=== PATIENT | male | born 1965 | race Caucasian/White ===

== ENCOUNTER 2016-07-21 19:14 | Emergency (ER) | payer OTHER ==
[2016-07-21] MEDS ORDERED: LORazepam TAB(*) 1 MG PO ONE (20:00)
[2016-07-21 21:31] VITALS: BP 144/104
--- NOTE | 2016-07-22 12:07 | ED ---
Ian Vidal Billy, scribed for Christian Pacheco MD on 07/21/16 at 1953 . Psychiatric Complaint - HPI Summary HPI Summary: Patient is a 51 year-old male coming to [facility] presenting with intermittent "panic attacks" in the last few days. He has been taking Benadryl and Xanax for his symptoms with no improvement. He took 2x Xanax today at 1400. He reports increased stress from work and from building a house. He also reports sleep disturbance in the last 24 hours. He has been seen in [facility] for panic attacks in the past. - History Of Current Complaint Chief Complaint: EDGeneral Time Seen by Provider: 07/21/16 19:47 Hx Obtained From: Patient Onset/Duration: Gradual Onset, Lasting Days, Still Present Timing: Intermittent Episode Lasting Severity Initially: Moderate Severity Currently: Moderate Character: Anxious Aggravating Factor(s): Recent Stress Alleviating Factor(s): Nothing Associated Signs And Symptoms: Positive: Sleep Disturbance Related History: Positive For: Prior Psychiatric Issues Has Suicidal: Denies: Thoughts, With A Plan, Demonstrates Gesture, Has Prior Attempt(s) Has Homicidal: Denies: Thoughts, With A Plan, Demonstrates Gesture, Has Prior Attempt(s) - Allergies/Home Medications Allergies/Adverse Reactions: Allergies Allergy/AdvReac Type Severity Reaction Status Date / Time Shrimp Flavor Allergy Difficulty Verified 07/12/15 17:56 Breathing/Wheezing pine nuts Allergy Difficulty Uncoded 07/12/15 17:56 Breathing/Wheezing PMH/Surg Hx/FS Hx/Imm Hx Endocrine/Hematology History: Denies: Hx Diabetes Respiratory History: Denies: Hx Chronic Obstructive Pulmonary Disease (COPD) Psychiatric History: Reports: Other Psychiatric Issues/Disorders - panic attacks Infectious Disease History: No Infectious Disease History: Reports: Traveled Outside the in Last 30 Days - [facility] - Family History Known Family History: Positive: Hypertension - Social History Alcohol Use: None Substance Use Type: Reports: None Hx Tobacco Use: Yes Smoking Status (MU): Former Smoker Type: Cigarettes Amount Used/How Often: quit 15 years ago Length of Time of Smoking/Using Tobacco: smoked ~on and off for 5 years Review of Systems Negative: Fever Positive: Other - "panic attack", decreased sleep All Other Systems Reviewed And Are Negative: Yes Physical Exam Triage Information Reviewed: Yes Vital Signs On Initial Exam: Initial Vitals Temp Pulse Resp BP Pulse Ox 96.7 F 126 22 165/90 100 07/21/16 19:25 07/21/16 19:25 07/21/16 19:25 07/21/16 19:25 07/21/16 19:25 Vital Signs Reviewed: Yes Appearance: Positive: Well-Appearing, No Pain Distress Skin: Positive: Warm, Skin Color Reflects Adequate Perfusion, Dry Head/Face: Positive: Normal Head/Face Inspection Eyes: Positive: Normal ENT: Positive: Normal ENT inspection Neck: Positive: Supple, Nontender Respiratory/Lung Sounds: Positive: Clear to Auscultation, Breath Sounds Present Cardiovascular: Positive: Tachycardia Abdomen Description: Positive: Nontender, Soft Bowel Sounds: Positive: Present Musculoskeletal: Positive: Normal Neurological: Positive: Normal, Sensory/Motor Intact, Alert, Oriented to Person Place, Time, CN Intact II-III Psychiatric: Positive: Anxious AVPU Assessment: Alert Diagnostics - Vital Signs Vital Signs Temp Pulse Resp BP Pulse Ox 07/21/16 19:25 96.7 F 126 22 165/90 100 - Laboratory Lab Statement: Any lab studies that have been ordered have been reviewed, and results considered in the medical decision making process. Re-Evaluation - Re-Evaluation First Eval Re-Evaluation Time: 21:58 Change: Improved Course/Dx - Course Course Of Treatment: Mr. Hunter improved with ativan here in the ED. I'm not sure why his Xanax which he takes PRN did not work for him today but he has been under additional stress recently. I will give him a few days of ativan for when he can't control the anxiety any other way. - Differential Dx/Clinical Impression Provider Diagnosis: Anxiety Discharge - Discharge Plan Condition: Stable Disposition: HOME Prescriptions: LORazepam TAB(*) [Ativan TAB(*)] 1 mg PO Q8H PRN #15 tab MDD 3 PRN Reason: Anxiety Patient Education Materials: Anxiety (ED) Referrals: Baldomero Jansen MD [Primary Care Provider] - The documentation as recorded by the Ian ott Billy accurately reflects the service I personally performed and the decisions made by me, Christian Pacheco MD.
== END 2016-07-21 22:37 | disposition home or self-care (01) ==
LOC: ED 19:14
DX: F41.9 Anxiety disorder, unspecified (principal); Z87.891 Personal history of nicotine dependence
CPT/HCPCS: 99282; A9270-GY

== ENCOUNTER → 2018-10-27 07:32 | Day surgery (SDC) | payer OTHER ==
[~2018-10-27 07:32] MED LIST: Heparin 2 UNITS/ML IVPREMIX* 3,000 UNIT/1,500 ML BAG IV ONE; Heparin(*) 1000 UNIT/ML 10 ML VIAL CATH LAB IV ONE; Iohexol 350 (CONTRAST) 200 ML MDV IV ONE; Lidocaine 1% INJ* 10 MG/ML 30 ML SDV ONE; Midazolam* 1 MG/ML 5 ML VIAL (5 MG) ONE; NS 0.9% 1000 ML** 1,000 ML IV SCH; VERAPAMIL 2.5 MG/ML 2 ML VIAL ** 5 mg/2 ml ONE; fentaNYL* 50 MCG/ML 2 ML VIAL (100 MCG VIAL) ONE; nitroGLYCERIN DRIP* 25,000 MCG/250 ML BTL ONE
[2018-10-27 13:30] VITALS: BP 101/67
--- NOTE | 2018-10-27 15:12 | CATH ---
"*[facility]* [address] [address] Main: [phone] [email or web address] Cardiac Catheterization (Report amended ) Patient: Van Hunter : 1965 Accession#: Age: [id number] Account#: Gender: M Study Date/Time: Oct 27 2018 9:23AM Painter Airbrush: Zheng Live - Right coronary angiography. - Left coronary angiography. - Left heart catheterization with angiography. Summary: 1. No significant coronary artery diease, with mild narrowing in the 1st and 4th OM branches as described below. 2. 1st obtuse marginal: Proximal vessel lesion: There is a 30% stenosis. 4th Obtuse Marginal Branch : There is a mild 30 % narrowing the proximal portion of this vessel. 3. Left ventricle: Systolic function is at the lower limits of normal. The estimated ejection fraction is 55%. Recommendations: The patient will follow up with Dr Hanks as scheduled next week for further evaluation of his shortness of breath. History: Stable angina. Functional status: NYHA class II (symptoms with moderate exercise). Progressive exertional shortness of breath over last 6 months. Risk factors: Hypertension. Dyslipidemia. Family history is significant for coronary artery disease. Medications: The patient received antianginal therapy in the last two weeks, including: beta blockers. Labs, prior tests, procedures, and surgery: Stress echocardiography. Abnormal. Moderate risk of ischemia. Blood tests: International normalized ratio (INR) of 0.9. Partial thromboplastin time (PTT) of 30.3 sec. Serum potassium (K) of 4.1 mEq/l. Serum sodium (Na) of 140 mEq/l. Serum creatinine (current admission) of 1.09 mg/dl. Blood urea nitrogen of 16 mg/dl. Glucose of 81 mg/dl. Platelet count of 238 th/ul. White blood cell count (WBC) of 0 th/ul. Red blood cell count (RBC) of 4730 th/ul. Hematocrit of 43 %. Hemoglobin (pre-procedure) of 15.1 g/dl. Study data: Study status: Cardiac cath: elective. Location: Catheterization laboratory. Consent: The risks, benefits, and alternatives to the procedure were explained to the patient and/or their healthcare assisted sales representative and written informed consent was obtained. All available pre-procedure labs were reviewed. Height: 177.8 cm. 70 in. Weight: 86.8 kg. 191 lb. Body surface area: 2.09 m^2. Body mass index: 27.5 kg/m^2. Procedure: 1. Initial setup. The patient was brought to the laboratory. Surface ECG leads, blood pressure measurements, and pulse oximetric signals were monitored. A baseline seven lead ECG was recorded. A time out was observed per protocol. 2. Skin preparation. The planned puncture sites were prepped and draped in the usual sterile manner. 3. Supplemental oxygen. Oxygen, 2 L/min was administered throughout the procedure. 4. Local anesthesia. 1% lidocaine (2 ml) was administered to the right forearm. 5. Right radial artery access. A 6F Glidesheath Slender sheath was advanced into the vessel. 6. Selective right coronary angiography. A 5F TIG 4.0 catheter was advanced into the right coronary vessel ostium under fluoroscopic guidance. Contrast was injected. Images were obtained in multiple projections. 7. Selective left coronary angiography. A 5F FL 3.5 Diagnostic Impulse catheter was advanced into the left coronary vessel ostium under fluoroscopic guidance. Contrast was injected. Images were obtained in multiple projections. 8. Left heart catheterization with angiography. A 5F PIG Short Radial catheter was advanced across the aortic valve to the left ventricle under fluoroscopic guidance. 24 ml of contrast was injected at 12 ml/s. 9. Right radial artery hemostasis. Vessel closure was achieved with a Regular Vasc Band device. Hemostasis was successfully obtained. Study completion: Minimal estimated blood loss. All catheters inserted during the procedure were removed. There were no apparent complications. Administered medications: VERSED (Midazolam), 1mg, IV. Aspirin, 81mg, PO. (Radial) Nitroglycerin, 300mcg, intra-arterially. (Radial) Verapamil, 3mg, intra-arterially. (Radial) Heparin, 3,000units, intra-arterially. NaCl 0.9% , infusion , at a rate of 100 ml/hr. NaCl 0.9% , 200 ml , bolus. Contrast: Iohexal [Omnipaque] 70 ml (total dose). Iohexal [Omnipaque] 130 ml (wasted). Radiation: Fluoroscopy dose: 61 cGy. Discharge: The patient tolerated the procedure well and was discharged from the lab in stable condition. Findings Coronary arteries: The coronary circulation is right dominant. The left anterior descending gives rise to 2 diagonals and wraps around the apex. The left circumflex gives rise to 4 obtuse marginals. The right coronary gives rise to 2 posterolaterals. Left main: Normal, 0% stenosis. LAD: Minor luminal irregularities. Left circumflex: Normal, 0% stenosis. 1st obtuse marginal: Proximal vessel lesion: There is a 30% stenosis. 4th Obtuse Marginal Branch : There is a mild 30 % narrowing the proximal portion of this vessel. Left ventricle: Systolic function is at the lower limits of normal. The estimated ejection fraction is 55%. Hemodynamics: + + + |Stage description |Condition 1 - | + + + |LV pressure s/d, ed |92 (s), 4 (ed)| + + + |Arterial pressure s/d (m)|90/67 (77) | + + + Amended and electronically signed by Zheng Live 10/27/2018 15:15"
== END | disposition home or self-care (01) ==
LOC: CHICATH 07:32
PROVIDERS: ATTEND Internal Medicine Cardiovascular Disease
DX: R94.39 Abnormal result of other cardiovascular function study (principal); R06.02 Shortness of breath; I20.8 Other forms of angina pectoris; I10 Essential (primary) hypertension; E78.5 Hyperlipidemia, unspecified; Z82.49 Family history of ischemic heart disease and other diseases of the circulatory system
CPT/HCPCS: 76937; 93452; J1644; J2250; J3010